=== PATIENT | female | born 1985 | race Two or more races ===

== ENCOUNTER 2024-10-13 22:54 | Emergency (ER) | payer MEDICAID, SELFPAY ==
--- NOTE | ~2024-10-13 | CT_ITS ---
EXAMINATION: CT ABDOMEN PELVIS WITH IV CONTRAST HISTORY: RUQ/RLQ pain COMPARISON: There are no prior studies for available comparison. TECHNIQUE: CT scan of the abdomen and pelvis was performed following administration of 85 mL Omnipaque 350 using standard departmental protocol. Coronal and sagittal reformatted images were generated and reviewed. Oral contrast material was not administered at the request of the referring physician. This CT exam was performed with one or more of the following dose reduction techniques: automated exposure control, adjustment of the mA and/or kV according to patient size, use of iterative reconstruction technique. DLP: 164 mGy-cm FINDINGS: LOWER CHEST: The visualized lung bases are clear. There is no pleural effusion. CARDIOVASCULATURE: The heart is normal in size. There is no pericardial effusion. LIVER: The liver is normal in size and contour. No liver mass is identified. The hepatic and portal veins are patent. GALLBLADDER / BILE DUCTS: The gallbladder is unremarkable. There is no intra or extrahepatic biliary ductal dilatation. SPLEEN: The spleen is normal in size. No focal splenic lesion is identified. PANCREAS: The pancreas is unremarkable in appearance. ADRENAL GLANDS: Within normal limits. KIDNEYS/RETROPERITONEUM: No renal calculi are identified. There is no hydronephrosis. No renal masses are identified. LYMPH NODES: No abdominal or pelvic lymphadenopathy. VASCULATURE: The abdominal aorta is normal in caliber. MESENTERY/PERITONEUM: No free fluid. No masses. There is no free intraperitoneal gas. STOMACH: The stomach is collapsed, limiting evaluation. SMALL BOWEL: There is an abnormal loop of small bowel in the right midabdomen which demonstrates wall thickening and mild mucosal hyperenhancement (series 2, images 41-46). The remainder of the small bowel is normal in caliber. There is no evidence of small bowel obstruction. COLON: The colon is unremarkable. APPENDIX: The appendix is not seen, however no inflammatory changes are seen adjacent to the cecum. URINARY BLADDER/PELVIC ORGANS: The urinary bladder is unremarkable. The uterus and ovaries are unremarkable. BONES / SOFT TISSUES: No suspicious bony or soft tissue abnormalities. CT/CT abdomen pelvis w IV con IMPRESSION: Abnormal loop of small bowel in the right mid abdomen as described, consistent with enteritis. This could be infectious or inflammatory in nature. Otherwise unremarkable contrast-enhanced CT of the abdomen and pelvis. Electronically signed by: Getachew Corado MD 10/14/2024 10:35 AM EDT
[2024-10-13 23:34] VITALS: BP 133/76; PULSE 88; RESP 18; TEMP 37.2; O2SAT 100; BMI 37.7
[2024-10-14 01:35] LABS: MANUAL DIFF FLAG NO
[2024-10-14 01:38] LABS: Basophils Percent Auto 0.3 % (0-2); Eosinophils Absolute Auto 0.1 X10*3/uL (0.0-0.4); Eosinophils Percent Auto 1.6 % (0-4); Hemoglobin 13.3 g/dl (12.0-16.0); Imm Gran Abs Auto 0.03 X10*3/uL (0.00-0.03); Imm Gran Pct Auto 0.4 % (0.0-0.4); Lymphocytes Absolute Auto 1.5 X10*3/uL (1.2-4.9); Lymphocytes Percent Auto 20.8 % (20-40); Mean Corpuscular HGB Conc 33.3 g/dl (31.0-35.0); Mean Corpuscular Hemoglobin 28.2 pg (27.0-33.0); Mean Corpuscular Volume 84.7 fL (80.0-98.0); Mean Platelet Volume 9.5 fL (9.4-12.3); Monocytes Absolute Auto 0.8 X10*3/uL (0.1-1.2); Monocytes Percent Auto 10.7 % (2-11); Neutrophils Absolute Auto 4.8 x10*3/uL (2.0-8.3); Neutrophils Percent Auto 66.2 % (45-73); Platelet Count 242 X10*3/uL (160-400); Red Blood Count 4.72 X10*6/uL (4.20-5.50); Red Cell Distribution Width 14.3 % (11.0-16.0); White Blood Count 7.3 X10*3/uL (4.8-10.8)
[2024-10-14 01:39] LABS: Appearance Urine Clear; Color Urine Yellow; Glucose Urine UA Negative (Negative); Leukocyte Esterase Urine Negative (Negative); Nitrite Urine Negative (Negative); PH 7.5 (5.0-9.0); Urine Blood Negative (Negative); Urine Ketones Negative (Negative); Urine Protein Negative (Neg-Trace)
[2024-10-14 01:41] LABS: Bacteria Urine 3+ (None Seen); Hyaline Casts Urine 0-2 /LPF (0-2); RBC Urine 0-2 /HPF (0-2); WBC Urine 0-5 /HPF (0-5)
[2024-10-14] MEDS: Ibuprofen 600 MG TABLET PO (01:45)
--- NOTE | 2024-10-14 01:45 | PC.NURSE ---
Pt medicated per JUL for pain. last had tylenol at 9pm
[2024-10-14 01:59] LABS: Alanine Aminotransferase 34 U/L (0-31); Albumin Level 4.5 g/dL (3.5-5.0); Alkaline Phosphatase 80 U/L (39-117); Anion Gap 12 (12-20); Aspartate Amino Transferase 23 U/L (5-31); Bilirubin Direct < 0.2 mg/dL (0.0-0.5); Bilirubin Total 0.2 mg/dL (0.0-1.0); Blood Urea Nitrogen 14 mg/dL (9-16); Carbon Dioxide 24 mmol/L (22-29); Chloride 105 mmol/L (96-108); Creatinine Clr Calc Pharmacy 116.8; Estimated Glomerular Filt Rate > 60; Glucose Random 106 mg/dL (60-115); Lipase 26 U/L (8-78); Potassium 4.2 mmol/L (3.3-5.1); Sodium 137 mmol/L (135-145); Total Protein 7.5 g/dL (6.5-8.0)
[2024-10-14 02:00] LABS: HCG Quantitative < 2 mIU/mL
--- NOTE | 2024-10-14 04:31 | PC.NURSE ---
pt awaiting to be seen by provider.
[2024-10-14 05:29] VITALS: BP 128/78; PULSE 83; RESP 12; TEMP 36.4; O2SAT 97
[2024-10-14 08:00] VITALS: BP 107/60; PULSE 76; RESP 16; TEMP 36.8; O2SAT 98
[2024-10-14] MEDS: 0.9 % Sodium Chloride 1,000 ML 999 ML IV (08:53)
[2024-10-14] MEDS: Ketorolac Tromethamine 15 MG/ML VIAL IVPUSH (08:54)
[2024-10-14] MEDS: ondansetron HCL 4 MG/2 ML VIAL IVPUSH (08:54)
--- NOTE | 2024-10-14 09:17 | ED.ABDPAIN ---
HPI - Abdominal Pain General Chief Complaint: Abdominal Pain Stated Complaint: middle to right abd pain Time Seen by Provider: 10/14/24 08:04 Source: patient, RN notes reviewed and old records reviewed Mode of arrival: ambulatory History of Present Illness ED Provider: Bev Martinez PA-C HPI narrative: 39-year-old female with no significant past medical history presenting to the ED complaining of RUQ abdominal pain since yesterday. States pain initially intermittent, now more constant with associated nausea. Denies fever, chills, vomiting, diarrhea/constipation, dysuria/hematuria. Related Data Allergies Allergy/AdvReac Type Severity Reaction Status Date / Time No Known Allergies Allergy Verified 10/13/24 23:35 Review of Systems Review of Systems Yes all other systems are reviewed and are negative Constitutional: Reports as per [facility] Past Medical History Attestation statement: The following information was validated with the patient. Source: old records reviewed Physical Exam ED Vital Signs: Vital Signs - 24 hr 10/13/24 23:34 10/14/24 05:29 10/14/24 08:00 Temperature 99 F 97.6 F 98.3 F Pulse Rate 88 83 76 Respiratory Rate 18 12 16 Blood Pressure 133/76 128/78 107/60 Pulse Oximetry 100 97 98 Oxygen Delivery Method Room Air Room Air Room Air 10/14/24 10:24 Temperature 97.0 F Pulse Rate 84 Respiratory Rate 16 Blood Pressure 136/88 Pulse Oximetry 100 Oxygen Delivery Method Room Air BMI result Body Mass Index 37.7 Const General: cooperative, healthy appearing and no acute distress Orientation/consciousness: patient oriented x3 Limitations: no limitations HENMT Head: Yes normal to inspection and Yes atraumatic Ears: hearing grossly normal bilaterally General nose exam: Normal external nose present Face and sinus: Yes normal facial exam Eyes General: appearance normal, both eyes and all related structures EOM: EOMs intact bilaterally Neck Neck: Yes normal visual inspection and Yes no meningeal signs Resp Effort & Inspection: normal respiratory effort and no respiratory distress Cardio Rate: regular rate GI Inspection: Yes normal to inspection Palpation (GI): Soft to palpation, Tenderness to palpation present (GI) in the RLQ and in the RUQ; with no rebound tenderness, no guarding and not rigid General: Yes no CVA tenderness Back/Spine/Pelvis Back: no CVA tenderness Skin Rashes: no rashes Wounds: no wounds Neuro General: patient oriented x3, tone normal and no meningeal signs Cranial nerves: Yes CN's II-XII intact bilaterally Gait exam (Neuro): Normal gait present Extrem General: Yes normal to inspection Course Course Course Narrative: -labs reassuring including negative hCG -UA negative CT abdomen pelvis w IV con IMPRESSION: Abnormal loop of small bowel in the right mid abdomen as described, consistent with enteritis. This could be infectious or inflammatory in nature. Otherwise unremarkable contrast-enhanced CT of the abdomen and pelvis. > 1115- patient tolerating p.o. in the ED without difficulty. Reports symptomatic improvement Results discussed with patient including worrisome signs and symptoms and strict return precautions, and when to return to the emergency department. They verbalized understanding and feel safe for discharge at this time. Medical Decision Making Medical Decision Making MDM Narrative: 39-year-old female with no significant past medical history presenting to the ED complaining of RUQ abdominal pain since yesterday. On exam vital signs stable, NAD, nontoxic appearing, physical exam as noted above. Abdomen is soft with RUQ/RLQ tenderness, no rebound or guarding, no CVAT. Concern for cholecystitis/lithiasis vs pancreatitis vs appendicitis vs renal stone. Rule out UTI. Lower suspicion for acute colitis/diverticulitis, pyelo Plan: Labs, UA, CT AP, IVF, antiemetic, re-evaluate Please refer to course for remaining clinical decision making, interpretation of labs/imaging results, and discussions with consultants and/or family members. Differential Diagnosis Differential Diagnoses: The differential diagnosis associated with the presentation includes As above Admission/Observation Consideration of admission/observation: Escalation of care including admission/observation considered Lab Data MDM Lab Attestation statement: I reviewed the patient's lab results. 10/14/24 01:28 10/14/24 01:28 Labs: Lab Results 10/14/24 Range/Units 01:28 WBC 7.3 (4.8-10.8) X10*3/uL RBC 4.72 (4.20-5.50) X10*6/uL Hgb 13.3 (12.0-16.0) g/dl Hct 40.0 (37.0-47.0) % MCV 84.7 (80.0-98.0) fL MCH 28.2 (27.0-33.0) pg MCHC 33.3 (31.0-35.0) g/dl RDW 14.3 (11.0-16.0) % Plt Count 242 (160-400) X10*3/uL MPV 9.5 (9.4-12.3) fL Immature Gran % (Auto) 0.4 (0.0-0.4) % Neut % (Auto) 66.2 (45-73) % Lymph % (Auto) 20.8 (20-40) % [place] % (Auto) 10.7 (2-11) % Eos % (Auto) 1.6 (0-4) % Baso % (Auto) 0.3 (0-2) % Lymph # (Auto) 1.5 (1.2-4.9) X10*3/uL [place] # (Auto) 0.8 (0.1-1.2) X10*3/uL Eos # (Auto) 0.1 (0.0-0.4) X10*3/uL Baso # (Auto) 0.0 (0.0-0.2) X10*3/uL Abs Immat Gran (auto) 0.03 (0.00-0.03) X10*3/uL Absolute Neuts (auto) 4.8 (2.0-8.3) x10*3/uL Absolute Nucleated RBC 0.000 (0.0-0.012) X10*3/uL Nucleated RBC % (auto) 0.0 (0.0-0.2) /100WBC Sodium 137 (135-145) mmol/L Potassium 4.2 (3.3-5.1) mmol/L Chloride 105 (96-108) mmol/L Carbon Dioxide 24 (22-29) mmol/L Anion Gap 12 (12-20) BUN 14 (9-16) mg/dL Creatinine 0.78 (0.5-1.4) mg/dL Estim Creat Clear Calc 116.8 Estimated GFR > 60 Random Glucose 106 (60-115) mg/dL Calcium 9.0 (8.4-10.2) mg/dL Magnesium 2.2 (1.6-2.6) mg/dL Total Bilirubin 0.2 (0.0-1.0) mg/dL Direct Bilirubin < 0.2 (0.0-0.5) mg/dL AST 23 (5-31) U/L ALT 34 H (0-31) U/L Alkaline Phosphatase 80 (39-117) U/L Total Protein 7.5 (6.5-8.0) g/dL Albumin 4.5 (3.5-5.0) g/dL Lipase 26 (8-78) U/L Beta HCG, Quant < 2 mIU/mL Urine Color Yellow Urine Appearance Clear Urine pH 7.5 (5.0-9.0) Ur Specific [place] 1.020 (1.005-1.025) Urine Protein Negative (Neg-Trace) mg/dL Urine Glucose (UA) Negative (Negative) mg/dL Urine Ketones Negative (Negative) mg/dL Urine Blood Negative (Negative) Urine Nitrite Negative (Negative) Ur Leukocyte Esterase Negative (Negative) Urine RBC 0-2 (0-2) /HPF Urine WBC 0-5 (0-5) /HPF Ur Squamous Epith Cells 6-10 (0-2) /HPF Urine Bacteria 3+ (None Seen) Hyaline Casts 0-2 (0-2) /LPF Independent Interpretation I performed an independent interpretation of an: CT Scan Radiology Impression Discussion of test interpretation with radiology: I have reviewed the radiologist's reading. External Record Review External record reviewed: Inpatient record, Office record, Outpatient record, Prior outpatient labs, Prior outpatient radiology, Primary care record and Outside ED record Tests considered The following testing was considered but not selected: As above Prescription Management I considered prescription management with: Pain Medication Chronic Conditions Patient?s care impacted by: Other Social Determinants Patient?s care significantly limited by Social Determinants of Health including: Other Social Determinant of Health Medications Administered Discontinued Medications Generic Name Dose Route Start Last Admin Trade Name Freq PRN Reason Stop Dose Admin Sodium Chloride 1,000 mls @ 999 mls/hr 10/14/24 08:30 10/14/24 11:04 Ns IV 10/14/24 09:30 Infused .Q1H1M ERNESTO Infusion Ibuprofen 600 mg 10/14/24 01:43 10/14/24 01:45 Ibuprofen 600 Mg Tablet PO 10/14/24 01:44 600 mg ONCE ONE Administration Iohexol 85 ml 10/14/24 10:16 10/14/24 10:17 Iohexol 350 Mg/Ml 100 Ml Infus..Btl IV 10/14/24 10:17 85 ml ONCE ONE Administration Ketorolac Tromethamine 15 mg 10/14/24 08:27 10/14/24 08:54 Ketorolac Tromethamine 15 Mg/Ml Vial IVPUSH 10/14/24 08:28 15 mg ONCE ONE Administration Ondansetron HCl 4 mg 10/14/24 08:27 10/14/24 08:54 Ondansetron Hcl 4 Mg/2 Ml Vial IVPUSH 10/14/24 08:28 4 mg ONCE ONE Administration Discharge Plan Discharge Clinical Impression: Enteritis Patient Disposition: Home, Self-Care Instructions: Enteritis (ED) Additional Instructions: Your CAT scan shows enteritis this is usually viral. No antibiotics indicated at this time Make sure you are staying hydrated at home, practice a bland diet, drink plenty of fluids If her symptoms persist or worsen you constant worsening abdominal pain, persistent nausea, vomiting, diarrhea or fever return to the emergency department Referrals: Physician,None [Primary Care Provider] - 5 days Stand Alone Forms: Work/School Release Interventions: ED Discharge Assessment Last Done: 10/14/24 12:04 Discharge Date/Time: 10/14/24 12:04 Print Language: [place]
[2024-10-14 09:19] LABS: Magnesium 2.2 mg/dL (1.6-2.6)
[2024-10-14] MEDS: iohexoL 350 MG/ML 100 ML INFUS..BTL 85 ML IV (10:17)
[2024-10-14 10:24] VITALS: BP 136/88; PULSE 84; RESP 16; TEMP 36.1; O2SAT 100
[2024-10-14 12:04] VITALS: BP 136/88; PULSE 84; RESP 16; TEMP 36.1; O2SAT 100
== END 2024-10-14 12:04 | disposition home or self-care (01) ==
PROVIDERS: Physician Assistant; Emergency Provider Emergency Medicine Emergency Medical Services
DX: K52.9 Noninfective gastroenteritis and colitis, unspecified (principal); R10.11 Right upper quadrant pain
CPT/HCPCS: 36415; 74177; 80048; 80076; 81001; 83690; 83735; 84702; 85025; 96361; 96374; 96375; 99284; 99285; J1885; J2405; Q9967

== ENCOUNTER → 2024-10-14 08:27 | Outpatient (BNV) | payer SELFPAY | PROVIDERS: Emergency Provider Emergency Medicine Emergency Medical Services; Visit Provider Radiology Diagnostic Radiology | DX: K63.89 Other specified diseases of intestine (principal) | CPT/HCPCS: 74177 ==